=== PATIENT | female | born 1940 | race Caucasian/White ===

== ENCOUNTER 2017-08-13 00:03 | Emergency (ER) | payer MEDICARE, OTHER ==
[2017-08-13 00:18] VITALS: BP 168/72
--- NOTE | 2017-08-13 00:36 | EDM.PDOC ---
ED HPI GENERAL MEDICAL PROBLEM - General Chief Complaint: Lower Extremity Injury/Pain Stated Complaint: LEFT LEG PAIN Time Seen by Provider: 08/13/17 00:19 Source of Information: Reports: Patient, Family () History Limitations: Reports: No Limitations - History of Present Illness INITIAL COMMENTS - FREE TEXT/NARRATIVE: The patient states that she has had pain in her left knee from osteoarthritis for about 10 years. She states that she was working in the shed today, then, around 19:30 tonight, she developed significant pain to the back of her left knee that radiates up to her buttock and down to about the midcalf. She has not identified any modifiers to the pain. She has not noticed any swelling to the left lower extremity. She applied ice to the leg, without relief. No prior similar symptoms. The patient takes a baby aspirin daily. The patient's PCP is Dr. Keysha Mejia. Left Knee Pain Score (Numeric/FACES): 10 - Related Data Allergies Allergy/AdvReac Type Severity Reaction Status Date / Time No Known Allergies Allergy Verified 08/13/17 00:18 Home Meds: Home Meds Aspirin 81 mg PO DAILY 09/12/14 [History] Losartan/Hydrochlorothiazide [Losartan-HCTZ 50-12.5 MG] 1 tab PO BEDTIME [History] Metoprolol Succinate [Toprol XL] 25 mg PO BEDTIME 09/12/14 [History] [place]-3 Fatty Acids [Fish Oil] 1,000 mg PO DAILY 09/12/14 [History] Simvastatin [Zocor] 5 mg PO BEDTIME 09/12/14 [History] Acetaminophen/HYDROcodone [[place] 325-5 MG] 1 tab PO Q6H PRN #10 tablet 08/13/17 [Rx] Lutein/Minerals/Vit A,C & E [Ocuvite] 1 tab PO DAILY 08/13/17 [History] Past Medical History Cardiovascular History: Reports: High Cholesterol, Hypertension Musculoskeletal History: Reports: Osteoarthritis Endocrine/Metabolic History: Reports: Other (See Below) (Prediabetes) - Past Surgical History GI Surgical History: Reports: Appendectomy, Other (See Below) (Hemorrhoidectomy) Female Surgical History: Reports: Hysterectomy, Salpingo-Oophorectomy Social & Family History - Tobacco Use Smoking Status *Q: Former Smoker Second Hand Smoke Exposure: No - Recreational Drug Use Recreational Drug Use: No - Living Situation & Occupation Living situation: Reports: Occupation: Retired Review of Systems - Review of Systems Review Of Systems: ROS reveals no pertinent complaints other than HPI. ED EXAM, GENERAL - Physical Exam Exam: See Below Exam Limited By: No Limitations General Appearance: Alert, WD/WN, No Apparent Distress Extremities: Other (No visible abnormality to the left lower extremity, when compared to the right, such as swelling, erythema, or ecchymosis. This includes the posterior aspect of the left knee. No tenderness to palpation along the posterior aspect of the left lower extremity. Neurovascular status of the left lower extremity is intact. Right mid-calf circumference 34.5 cm. Left mid-calf circumference 33.5 cm.) Course - Vital Signs Last Recorded V/S: Last Vital Signs Temp 36.7 C 08/13/17 00:16 Pulse 79 08/13/17 00:16 Resp 18 08/13/17 00:16 BP 168/72 H 08/13/17 00:16 Pulse Ox 98 08/13/17 00:16 - Orders/Labs/Meds Orders: Active Orders 24 hr Category Date Time Status VL Duplex Lwr Ext Veins Ltd Lt [US] Stat Exams 08/13/17 00:31 Taken Labs: Laboratory Tests 08/13/17 08/13/17 08/13/17 Range/Units 00:40 00:40 00:40 WBC 9.32 (3.98-10.04) K/mm3 RBC 4.37 (3.98-5.22) M/mm3 Hgb 13.4 (11.2-15.7) gm/L Hct 38.4 (34.1-44.9) % MCV 87.9 (79.4-94.8) fl MCH 30.7 (25.6-32.2) pg MCHC 34.9 (32.2-35.5) g/dl RDW Std Deviation 40.8 (36.4-46.3) fL Plt Count 267 (182-369) K/mm3 MPV 9.4 (9.4-12.3) fl Neutrophils % (Manual) 49 (40-60) % Band Neutrophils % 1 (0-10) % Lymphocytes % (Manual) 43 H (20-40) % Atypical Lymphs % 0 % Monocytes % (Manual) 6 (2-10) % Eosinophils % (Manual) 1 (0.7-5.8) % Basophils % (Manual) 0 L (0.1-1.2) Platelet Estimate Adequate RBC Morph Comment Normal PT 11.4 (9.5-12.1) SECONDS INR 1.05 APTT 30 (24-31) SECONDS Sodium 140 (136-145) mEq/L Potassium 3.4 L (3.5-5.1) mEq/L Chloride 103 (98-107) mEq/L Carbon Dioxide 26 (21-32) mEq/L Anion Gap 14.4 (5-15) BUN 13 (7-18) mg/dL Creatinine 0.9 (0.55-1.02) mg/dL Est Cr Clr Drug Dosing 46.36 mL/min Estimated GFR (MDRD) > 60 (>60) mL/min BUN/Creatinine Ratio 14.4 (14-18) Glucose 140 H (83-115) mg/dL Calcium 9.8 (8.5-10.1) mg/dL Total Bilirubin 0.3 (0.2-1.0) mg/dL AST 15 (15-37) U/L ALT 32 (14-59) U/L Alkaline Phosphatase 120 H (46-116) U/L Total Protein 6.6 (6.4-8.2) g/dl Albumin 3.5 (3.4-5.0) g/dl Globulin 3.1 gm/dL Albumin/Globulin Ratio 1.1 (1-2) Meds: Medications Discontinued Medications Generic Name Dose Route Start Last Admin Trade Name Freq PRN Reason Stop Dose Admin Hydrocodone Bitart/Acetaminophen 1 tab 08/13/17 00:42 08/13/17 00:47 [place] 325-5 Mg PO 08/13/17 00:43 1 tab ONETIME STA Administration - Re-Assessments/Exams Free Text/Narrative Re-Assessment/Exam: 08/13/17 00:35 It is unclear what the cause of the patient's left lower extremity pain is. It may well be a muscle strain, but could also be a Israel's cyst or, potentially, a DVT. I have ordered a Doppler of the left lower extremity to evaluate for the latter two, and in the meantime will check some blood work. 08/13/17 01:53 Doppler ultrasound of left lower extremity is read by [facility] as: 1. No evidence of deep venous thrombosis in the left lower extremity. 2. A 2.6 solid soft lesion corresponding to the site of discomfort in the left popliteal fossa. This may be related to prior injury, lymphadenopathy or a neoplastic lesion. Close follow-up or further evaluation with MRI on non- emergent basis is recommended. [sic] 08/13/17 01:59 Test results discussed with the patient. Unfortunately, while the Doppler indicates that there is a solid tissue mass in her left popliteal fossa, the nature of that mass is not known, or why it would cause sudden onset pain radiating up and down her left lower extremity. For tonight's purposes, I will prescribe a small quantity of [place], and refer her to Dr. Kat for further evaluation. Departure - Departure Time of Disposition: 02:00 Disposition: Home, Self-Care 01 Condition: Good Clinical Impression: Popliteal pain - Discharge Information Prescriptions: Acetaminophen/HYDROcodone [[place] 325-5 MG] 1 tab PO Q6H PRN #10 tablet PRN Reason: Pain (Severe 7-10) Referrals: Keysha Mejia MD [Primary Care Provider] - Yifan Kat MD [Physician] - Forms: ED Department Discharge Additional Instructions: You were seen in the emergency room for pain to the back of your left knee, radiating up and down your lower extremity. Workup in the ER included blood work and a Doppler ultrasound of your left lower extremity. Your blood work was unremarkable. The Doppler ultrasound found no blood clot, but did find a tissue mass in the area of your pain. It is not clear what that tissue mass is made of. Take one tablet of [place] up to every 6 hours, as needed for severe pain. If you take [place], do not drive or 10 hours afterwards. [place] may cause constipation, so consider taking a stool softener. Follow-up with the Orthopedic Surgeon Dr. Kat at the next available appointment , for further evaluation. If any other problems, please do not hesitate to return to the ER. - My Orders Last 24 Hours: My Active Orders 08/13/17 00:31 VL Duplex Lwr Ext Veins Ltd Lt [US] Stat - Assessment/Plan Last 24 Hours: My Active Orders 08/13/17 00:31 VL Duplex Lwr Ext Veins Ltd Lt [US] Stat
[2017-08-13] MEDS ORDERED: Acetaminophen/HYDROcodone 325-5 MG Tab PO STA (00:42)
--- NOTE | 2017-08-13 08:17 | US ---
Left lower extremity deep venous ultrasound: Multiple real-time images were obtained of the left common femoral, proximal greater saphenous, superficial femoral, popliteal, posterior tibial and peroneal veins. Right common femoral vein was also evaluated. Findings: Normal phasic flow, augmentation and compression are seen. Isoechoic mass-like lesion is seen within the posterior left popliteal fossa in area of pain. This measures about 2.6 x 2.2 cm. Impression: 1. Soft tissue abnormality within the posterior left popliteal fossa. Differential includes hematoma if there has been prior injury. Soft tissue mass is also within the differential. MRI recommended to further evaluate. 2. No evidence of deep venous thrombosis is seen within the left lower extremity or within the right common femoral vein. Diagnostic code #9 I agree with preliminary report from [facility], finalized at 08/13/17, 2:50 AM Central Time
== END 2017-08-13 02:21 | disposition home or self-care (01) ==
LOC: JD.ED 00:03
DX: M25.562 Pain in left knee (principal); E78.00 Pure hypercholesterolemia, unspecified; I10 Essential (primary) hypertension; Z87.891 Personal history of nicotine dependence; Z79.82 Long term (current) use of aspirin; Z79.899 Other long term (current) drug therapy
CPT/HCPCS: 36415; 80053; 85025; 85610; 85730; 93971; 99284; A9270; 99283

== ENCOUNTER 2017-08-27 19:06 | Emergency (ER) | payer MEDICARE ==
[2017-08-27 19:33] VITALS: BP 136/48
--- NOTE | 2017-08-27 20:43 | EDM.PDOC ---
ED HPI GENERAL MEDICAL PROBLEM - General Chief Complaint: Bite:Animal, Insect Stated Complaint: TICK ON HEAD Time Seen by Provider: 08/27/17 20:20 Source of Information: Reports: Patient History Limitations: Reports: No Limitations - History of Present Illness INITIAL COMMENTS - FREE TEXT/NARRATIVE: 77 year old female presents for evaluation and treatment of a tick bite. Reportedly was at [facility] the past few days. Appreciated a tick earlier today. Estimated to be on the skin < 24 hours. No fevers, chills, nausea or vomiting. No skin changes such as rash or erythema appreciated. - Related Data Allergies Allergy/AdvReac Type Severity Reaction Status Date / Time No Known Allergies Allergy Verified 08/27/17 19:30 Home Meds: Home Meds Aspirin 81 mg PO DAILY 09/12/14 [History] Losartan/Hydrochlorothiazide [Losartan-HCTZ 50-12.5 MG] 1 tab PO BEDTIME [History] Metoprolol Succinate [Toprol XL] 25 mg PO BEDTIME 09/12/14 [History] [place]-3 Fatty Acids [Fish Oil] 1,000 mg PO DAILY 09/12/14 [History] Simvastatin [Zocor] 5 mg PO BEDTIME 09/12/14 [History] Lutein/Minerals/Vit A,C & E [Ocuvite] 1 tab PO DAILY 08/13/17 [History] Past Medical History Other HEENT History: Right eye. Surgery on 12/16/14 for removal Cardiovascular History: Reports: High Cholesterol, Hypertension Other Gastrointestinal History: Has constipation that turns into diarrhea most of the time Musculoskeletal History: Reports: Osteoarthritis Endocrine/Metabolic History: Reports: Other (See Below) Other Endocrine/Metabolic History: prediabetes, HLD - Past Surgical History GI Surgical History: Reports: Appendectomy, Other (See Below) Female Surgical History: Reports: Hysterectomy, Salpingo-Oophorectomy Social & Family History - Tobacco Use Smoking Status *Q: Never Smoker - Caffeine Use Caffeine Use: Reports: Coffee - Living Situation & Occupation Living situation: Reports: Occupation: Retired ED ROS GENERAL - Review of Systems Review Of Systems: ROS reveals no pertinent complaints other than HPI. ED EXAM, ANIMAL BITE - Physical Exam Exam: See Below Exam Limited By: No Limitations General Appearance: Alert, WD/WN, No Apparent Distress Respiratory/Chest: No Respiratory Distress Neurological: Alert, Oriented, Normal Cognition Psychiatric: Normal Affect, Normal Mood Skin Exam: Normal Color, Warm/Dry, Other (deer tick to the left occipital scalp ; no surrounding erythema, tick is not engorged. Tick had greasped the skin but was not embeded in the skin. ) Course - Vital Signs Last Recorded V/S: Last Vital Signs Temp 36.3 C 08/27/17 19:31 Pulse 76 08/27/17 19:31 Resp 17 08/27/17 19:31 BP 136/48 L 08/27/17 19:31 Pulse Ox 97 08/27/17 19:31 - Re-Assessments/Exams Free Text/Narrative Re-Assessment/Exam: 08/27/17 20:32 [place] tick removed from the left occipital scalp. No surrounding erythema. No bulls eye rash appreciated. Tick not engorged. Removed easily with pick-ups. Instructed to monitor the area. Follow-up as needed. Discharge instructions as documented. Departure - Departure Time of Disposition: 20:41 Disposition: Home, Self-Care 01 Condition: Fair Clinical Impression: Tick bite of head - Discharge Information Instructions: Tick Bite Information, Adult, [id number] Referrals: Keysha Mejia MD [Primary Care Provider] - Forms: ED Department Discharge Additional Instructions: Monitor the area over the next week. Check the area daily or every other day. Monitor for signs of infection like swelling, pus or redness. Monitor for a bull 's-eye-like rash. Present to the clinic or the ER if these develop. If you develop fevers, chills, nausea or vomiting over the next week make sure you are seen and mention that you had a tick bite recently. Please return to the ER for symptoms change or worse. You may wash your hair as normal.
== END 2017-08-27 20:47 | disposition home or self-care (01) ==
LOC: JD.ED 19:06
DX: S00.06XA Insect bite (nonvenomous) of scalp, initial encounter (principal); I10 Essential (primary) hypertension; Z79.82 Long term (current) use of aspirin; Z79.899 Other long term (current) drug therapy; W57.XXXA Bitten or stung by nonvenomous insect and other nonvenomous arthropods, initial encounter
CPT/HCPCS: 10120; 99282-25

== ENCOUNTER 2019-07-19 22:55 | Emergency (ER) | payer MEDICARE, OTHER ==
[2019-07-19 23:08] VITALS: PULSE 75
[2019-07-19] MEDS ORDERED: cloNIDine 0.1 MG Tab PO ONE (23:28)
--- NOTE | 2019-07-19 23:33 | EDM.PDOC ---
ED HPI GENERAL MEDICAL PROBLEM - General Chief Complaint: Cardiovascular Problem Stated Complaint: HIGH BLOOD PRESSURE Time Seen by Provider: 07/19/19 23:21 Source of Information: Reports: Patient History Limitations: Reports: No Limitations - History of Present Illness INITIAL COMMENTS - FREE TEXT/NARRATIVE: This is a 78-year-old female. She has hypertension for which she takes 50 mg losartan 12.5 mg hydrochlorothiazide and 50 mg of metoprolol in the morning. She recently had her metoprolol increased from 25 mg to 50 mg about 5 weeks ago. For some reason she has been feeling restless at nighttime and she was wondering whether or not it might be her blood pressure that is elevating at nighttime. She checked her blood pressure this morning because she was nervous about it is elevated with systolic above 200. Continue to monitor her blood pressure and finally comes in this evening because it continues to be elevated. She does admit that she is somewhat anxious about her blood pressure and she panics when she sees as high that she says normally her blood pressure runs 120/ 60. She does have an appointment on Sunday to see her family doctor. She has elevated blood pressure other than being anxious she has no chest pain she has no shortness of breath and occasionally she will have a mild headache. She denies any recent illnesses such as colds cough fever or shortness of breath. Occipital Pain Score (Numeric/FACES): 3 - Related Data Allergies Allergy/AdvReac Type Severity Reaction Status Date / Time No Known Allergies Allergy Verified 07/19/19 23:08 Home Meds: Home Meds Aspirin 81 mg PO DAILY 09/12/14 [History] Losartan/Hydrochlorothiazide [Losartan-HCTZ 50-12.5 MG] 1 tab PO DAILY 09/12/14 [History] Metoprolol Succinate [Toprol XL] 50 mg PO BEDTIME 09/12/14 [History] [place]-3 Fatty Acids [Fish Oil] 1,000 mg PO DAILY 09/12/14 [History] Simvastatin [Zocor] 5 mg PO BEDTIME 09/12/14 [History] Lutein/Minerals/Vit A,C & E [Ocuvite] 1 tab PO DAILY 08/13/17 [History] Past Medical History Other HEENT History: Right eye. Surgery on 12/16/14 for removal Cardiovascular History: Reports: High Cholesterol, Hypertension Other Gastrointestinal History: Has constipation that turns into diarrhea most of the time Musculoskeletal History: Reports: Osteoarthritis Endocrine/Metabolic History: Reports: Other (See Below) Other Endocrine/Metabolic History: prediabetes, HLD - Past Surgical History GI Surgical History: Reports: Appendectomy, Other (See Below) Female Surgical History: Reports: Hysterectomy, Salpingo-Oophorectomy Social & Family History - Tobacco Use Smoking Status *Q: Former Smoker Used Tobacco, but Quit: Yes Month/Year Tobacco Last Used: 20 years ago - Caffeine Use Caffeine Use: Reports: Coffee - Recreational Drug Use Recreational Drug Use: No - Living Situation & Occupation Living situation: Reports: Occupation: Retired ED ROS GENERAL - Review of Systems Review Of Systems: See Below Constitutional: Denies: Fever, Chills HEENT: Reports: No Symptoms Respiratory: Denies: Shortness of Breath, Cough Cardiovascular: Denies: Chest Pain Endocrine: Reports: No Symptoms GI/Abdominal: Denies: Abdominal Pain, Diarrhea, Nausea, Vomiting : Reports: No Symptoms Musculoskeletal: Reports: No Symptoms Skin: Reports: No Symptoms Neurological: Reports: Headache Psychiatric: Reports: No Symptoms Hematologic/Lymphatic: Reports: No Symptoms ED EXAM, GENERAL - Physical Exam Exam: See Below Exam Limited By: No Limitations General Appearance: Alert, WD/WN, Anxious Eye Exam: Bilateral Eye: Normal Inspection Ears: Normal External Exam Throat/Mouth: Normal Voice, No Airway Compromise Head: Normocephalic Neck: Supple Respiratory/Chest: No Respiratory Distress, Lungs Clear, Normal Breath Sounds Cardiovascular: Regular Rate, Rhythm, No Murmur Back Exam: Full Range of Motion Extremities: Normal Inspection, Normal Range of Motion Neurological: Alert, Oriented Psychiatric: Anxious Skin Exam: Warm, Dry EKG INTERPRETATION EKG Date: 07/19/19 Time: 23:56 EKG Interpretation Comments: EKG shows a normal sinus rhythm rate of 64. No acute ST or T wave changes noted. No ischemia noted. Course - Vital Signs Last Recorded V/S: Last Vital Signs Temp 97.1 F 07/19/19 23:04 Pulse 75 07/19/19 23:04 Resp 16 07/19/19 23:04 BP 167/77 H 07/19/19 23:33 Pulse Ox 98 07/19/19 23:04 - Orders/Labs/Meds Orders: Active Orders 24 hr Category Date Time Status EKG 12 Lead [EKG Documentation Completion] [RC] STAT Care 04/11/20 23:29 Active Labs: Laboratory Tests 07/19/19 07/19/19 Range/Units 23:35 23:35 WBC 6.75 (3.98-10.04) K/mm3 RBC 4.90 (3.98-5.22) M/mm3 Hgb 14.1 (11.2-15.7) gm/dl Hct 41.7 (34.1-44.9) % MCV 85.1 (79.4-94.8) fl MCH 28.8 (25.6-32.2) pg MCHC 33.8 (32.2-35.5) g/dl RDW Std Deviation 43.0 (36.4-46.3) fL Plt Count 285 (182-369) K/mm3 MPV 9.7 (9.4-12.3) fl Neut % (Auto) 33.9 L (34.0-71.1) % Lymph % (Auto) 52.1 H (19.3-51.7) % [place] % (Auto) 11.3 (4.7-12.5) % Eos % (Auto) 2.2 (0.7-5.8) Baso % (Auto) 0.4 (0.1-1.2) % Neut # (Auto) 2.28 (1.56-6.13) K/mm3 Lymph # (Auto) 3.52 (1.18-3.74) K/mm3 [place] # (Auto) 0.76 H (0.24-0.36) K/mm3 Eos # (Auto) 0.15 (0.04-0.36) K/mm3 Baso # (Auto) 0.03 (0.01-0.08) K/mm3 Sodium 136 (136-145) mEq/L Potassium 4.2 (3.5-5.1) mEq/L Chloride 102 (98-107) mEq/L Carbon Dioxide 27 (21-32) mEq/L Anion Gap 11.2 (5-15) BUN 14 (7-18) mg/dL Creatinine 1.0 (0.55-1.02) mg/dL Est Cr Clr Drug Dosing 41.05 mL/min Estimated GFR (MDRD) 53 (>60) mL/min BUN/Creatinine Ratio 14.0 (14-18) Glucose 125 H (83-115) mg/dL Calcium 10.4 H (8.5-10.1) mg/dL Total Bilirubin 0.2 (0.2-1.0) mg/dL AST 26 (15-37) U/L ALT 38 (14-59) U/L Alkaline Phosphatase 120 H (46-116) U/L Troponin I < 0.017 (0.00-0.056) ng/mL Total Protein 7.4 (6.4-8.2) g/dl Albumin 3.9 (3.4-5.0) g/dl Globulin 3.5 gm/dL Albumin/Globulin Ratio 1.1 (1-2) Meds: Medications Discontinued Medications Generic Name Dose Route Start Last Admin Trade Name Brenda PRN Reason Stop Dose Admin Clonidine HCl 0.2 mg 07/19/19 23:28 07/19/19 23:33 Catapres PO 07/19/19 23:29 0.2 mg ONETIME ONE Administration - Re-Assessments/Exams Free Text/Narrative Re-Assessment/Exam: 07/20/19 01:06 Patient is feeling good. She wants to go home. She says her headache has resolved. I talked to her at length regarding taking her blood pressure and making sure she takes her medications in the morning and increase the losartan to 1 tablet at nighttime as well. We talked about how anxiety causes the blood pressure to rise and she needs to lie down and take her blood pressures to stay as relaxed as possible. She does have a follow-up appointment with her doctor on Sunday and I have encouraged her to keep that. Departure - Departure Time of Disposition: : Disposition: Home, Self-Care 01 Condition: Good Clinical Impression: Elevated blood pressure reading Referrals: Keysha Mejia MD [Primary Care Provider] - Forms: ED Department Discharge Additional Instructions: Take 1 losartan and metoprolol medication in the morning and then take 1 losartan in the evening, you can space them out 10-12 hours apart must follow- up with your doctor on Sunday as scheduled for recheck of your blood pressure and possibly change in medications, return to the ER if needed Sepsis Event Note - Evaluation Sepsis Screening Result: No Definite Risk - Focused Exam Vital Signs: Vital Signs Temp Pulse Resp BP BP Pulse Ox 07/19/19 23:33 167/77 H 07/19/19 23:04 97.1 F 75 16 201/80 H 98 Date Exam was Performed: 07/20/19 Time Exam was Performed: 01:06 - My Orders Last 24 Hours: My Active Orders 07/19/19 23:29 EKG 12 Lead [EKG Documentation Completion] [RC] STAT - Assessment/Plan Last 24 Hours: My Active Orders 07/19/19 23:29 EKG 12 Lead [EKG Documentation Completion] [RC] STAT
[2019-07-19 23:34] VITALS: BP 167/77
== END 2019-07-20 01:18 | disposition home or self-care (01) ==
LOC: JD.ED 22:55
DX: I10 Essential (primary) hypertension (principal); M19.90 Unspecified osteoarthritis, unspecified site; Z79.82 Long term (current) use of aspirin; E78.5 Hyperlipidemia, unspecified; Z87.891 Personal history of nicotine dependence; Z79.899 Other long term (current) drug therapy
CPT/HCPCS: 36415; 80053; 84484; 85025; 93005; 99283; A9270; 93010

== ENCOUNTER 2021-01-24 07:33 | Day surgery (SDC) | payer MEDICARE, OTHER ==
[~2021-01-24 07:33] MED LIST: Acetaminophen 325 MG Tab PO SCH; Lactated Ringers 1,000 ML IV SCH; Lidocaine 1%/Sod Bicarbonate in NS 8.4% 1 ML Syringe IDERM PRN; Pregabalin 25 MG Cap PO SCH; Sodium Chloride 0.9% 10 ML Syringe FLUSH PRN
[2021-01-24] MEDS ORDERED: Propofol 200 MG/20 ML SDV ONE ×2 (07:55→10:03)
[2021-01-24] MEDS ORDERED: ceFAZolin 1 GM Vial ONE (07:56)
[2021-01-24] MEDS ORDERED: Lidocaine 1% 4 ML ONE (07:56)
[2021-01-24] MEDS ORDERED: Ropivacaine 0.5% 5 MG/ML 30 ML SDV ONE (08:00)
[2021-01-24] MEDS ORDERED: EPINEPHrine 1 MG/ML SDV ONE (08:01)
--- NOTE | 2021-01-24 08:16 | PCM.PREANE ---
Preanesthetic Assessment - Anesthesia/Transfusion/Family Hx Anesthesia History: Prior Anesthesia Without Reaction Family History of Anesthesia Reaction: No Transfusion History: No Prior Transfusion(s) Intubation History: Unknown - Review of Systems General: No Symptoms Pulmonary: No Symptoms Cardiovascular: No Symptoms Gastrointestinal: No Symptoms Neurological: No Symptoms Other: Reports: Diabetes (BS 141 @ 0805), Anxiety - Physical Assessment NPO Status Date: 01/23/21 NPO Status Time: 22:00 ASA Class: 2 Mental Status: Alert & Oriented x3 Airway Class: Mallampati = 2 Dentition: Reports: Normal Dentition Thyro-Mental Finger Breadths: 3 Mouth Opening Finger Breadths: 3 ROM/Head Extension: Full Lungs: Clear to Auscultation, Normal Respiratory Effort Cardiovascular: Regular Rate, Regular Rhythm - Allergies Allergies/Adverse Reactions: Allergies Allergy/AdvReac Type Severity Reaction Status Date / Time No Known Allergies Allergy Verified 01/21/21 12:36 - Anesthesia Plan Beta Carey: Metoprolol Med Last Dose Date: 01/24/21 - Acknowledgements Anesthesia Type Planned: Spinal, Regional Block Pt an Appropriate Candidate for the Planned Anesthesia: Yes Alternatives and Risks of Anesthesia Discussed w Pt/Guardian: Yes Pt/Guardian Understands and Agrees with Anesthesia Plan: Yes PreAnesthesia Questionnaire HEENT History: Reports: Hard of Hearing, Impaired Vision Other HEENT History: Right eye. Surgery on 12/16/14 for removal Cardiovascular History: Reports: CAD, High Cholesterol, Hypertension Respiratory History: Reports: Other (See Below) Other Respiratory History: pulmonary nodule left lower lung Gastrointestinal History: Reports: Chronic Constipation, Hemorrhoids Other Gastrointestinal History: Has constipation that turns into diarrhea most of the time Genitourinary History: Reports: Other (See Below) Other Genitourinary History: rectocele TONSORIAL ARTIST History: Reports: None Musculoskeletal History: Reports: Arthritis Neurological History: Reports: None Psychiatric History: Reports: Anxiety, Depression Endocrine/Metabolic History: Reports: Other (See Below) Other Endocrine/Metabolic History: pre diabetes Hematologic History: Reports: None Immunologic History: Reports: None Oncologic (Cancer) History: Reports: None Dermatologic History: Reports: None - Infectious Disease History Infectious Disease History: Reports: None - Past Surgical History Head Surgeries/Procedures: Reports: None HEENT Surgical History: Reports: Cataract Surgery Cardiovascular Surgical History: Reports: None Respiratory Surgical History: Reports: None GI Surgical History: Reports: Colonoscopy, EGD Female Surgical History: Reports: Hysterectomy Male Surgical History: Reports: None Endocrine Surgical History: Reports: None Neurological Surgical History: Reports: None Musculoskeletal Surgical History: Reports: Carpal Tunnel Oncologic Surgical History: 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 Dermatological Surgical History: Reports: None - SUBSTANCE USE Tobacco Use Status *Q: Former Tobacco User Recreational Drug Use History: No - HOME MEDS Home Medications: Home Meds Losartan/Hydrochlorothiazide [Losartan-HCTZ 50-12.5 MG] 1 tab PO DAILY 09/12/14 [History] Metoprolol Succinate [Toprol XL] 50 mg PO BEDTIME 09/12/14 [History] [place]-3 Fatty Acids [Fish Oil] 1,000 mg PO DAILY 09/12/14 [History] Simvastatin [Zocor] 5 mg PO BEDTIME 09/12/14 [History] Cholecalciferol (Vitamin D3) [Vitamin D3] 5,000 unit PO DAILY 01/21/21 [History] Fluticasone Propionate [Flonase] 1 dose NASBOTH DAILY 01/21/21 [History] LORazepam [Ativan] 0.5 mg PO BEDTIME PRN 01/21/21 [History] Magnesium Hydroxide [Milk of Magnesia] 1 dose PO ASDIRECTED PRN 01/21/21 [History] Omeprazole Magnesium [Prilosec Otc] 20 mg PO DAILY 01/21/21 [History] traZODone HCl [Trazodone HCl] 25 mg PO BEDTIME 01/21/21 [History] Aspirin [Aspirin EC] 325 mg PO BID #60 tab 01/24/21 [Rx] oxyCODONE 5 - 10 mg PO Q4H PRN #40 tab 01/24/21 [Rx] - CURRENT (IN HOUSE) MEDS Current Meds: Current Medications Acetaminophen (Acetaminophen 325 Mg Tab) 975 mg PO ONETIME NATHAN Stop: 01/24/21 16:00 Morphine Sulfate 8 mg/Epinephrine HCl 0.3 mg/Cefuroxime Sodium 750 mg/Ketorolac Tromethamine 30 mg/Sodium Chloride 7.9 ml 0 mg .XX ASDIRECTED PRN PRN Reason: Pain Stop: 01/24/21 18:00 Lactated Ringer's (Ringers, Lactated) 1,000 mls @ 125 mls/hr IV ASDIRECTED NATHAN Stop: 01/24/21 23:00 Lidocaine/Sodium Bicarbonate (Lidocaine 1%/Sod Bicarbonate In Ns 8.4% 1 Ml Syringe) 0.25 ml IDERM ONETIME PRN PRN Reason: Prior to IV Start Stop: 01/24/21 18:00 Oxycodone HCl (Oxycodone Er 10 Mg Tab.Er) 10 mg PO ONETIME NATHAN Stop: 01/24/21 16:00 Pregabalin (Pregabalin 25 Mg Cap) 50 mg PO ONETIME NATHAN Stop: 01/24/21 18:00 Sodium Chloride (Sodium Chloride 0.9% 10 Ml Syringe) 10 ml FLUSH ASDIRECTED PRN PRN Reason: Keep Vein Open Stop: 01/24/21 18:00 Discontinued Medications Cefazolin Sodium (Cefazolin 1 Gm Vial) Confirm Administered Dose 2 gm .ROUTE .STK-MED ONE Stop: 01/24/21 07:57 Epinephrine HCl (Epinephrine 1 Mg/Ml Sdv) Confirm Administered Dose 1 mg .ROUTE .STK-MED ONE Stop: 01/24/21 08:02 Lidocaine HCl (Xylocaine-Mpf 1%) Confirm Administered Dose 4 mls @ as directed .ROUTE .STK-MED ONE Stop: 01/24/21 07:57 Propofol (Propofol 200 Mg/20 Ml Sdv) Confirm Administered Dose 200 mg .ROUTE .STK-MED ONE Stop: 01/24/21 07:56 Ropivacaine (Ropivacaine 0.5% 5 Mg/Ml 30 Ml Sdv) Confirm Administered Dose 30 ml .ROUTE .STK-MED ONE Stop: 01/24/21 08:01 Tranexamic Acid (Tranexamic Acid 1,000 Mg/10 Ml Amp) Confirm Administered Dose 1,000 mg .ROUTE .STK-MED ONE Stop: 01/24/21 07:36 Vancomycin HCl (Vancomycin 1 Gm Sdv) Confirm Administered Dose 1 gm .ROUTE .STK- MED ONE Stop: 01/24/21 07:36
[2021-01-24] MEDS: oxyCODONE ER 10 MG TAB.ER PO SCH ×2 (08:20→13:30)
[2021-01-24] MEDS ORDERED: Vancomycin 1 GM SDV ONE (08:42)
[2021-01-24] MEDS ORDERED: ePHEDrine 50 MG/ML SDV ONE (09:20)
[2021-01-24] MEDS ORDERED: Lactated Ringers 1,000 ML ONE (09:29)
[2021-01-24] MEDS ORDERED: Ondansetron 4 MG/2 ML SDV IVPUSH PRN (09:49)
[2021-01-24] MEDS ORDERED: fentaNYL 100 MCG/2 ML SDV IVPUSH PRN (09:49)
[2021-01-24] MEDS: Morphine 8 MG, EPINEPHrine 0.3 MG, Cefuroxime 750 MG, Ketorolac 30 MG, Sodium Chloride ... PRN ×10 (10:22→10:24)
[2021-01-24] MEDS: Vancomycin 1 GM SDV ONE ×2 (10:25→10:28)
[2021-01-24] MEDS ORDERED: Ondansetron 4 MG/2 ML SDV ONE (10:35)
[2021-01-24] MEDS ORDERED: Ketorolac 15 MG/ML SDV ONE (10:35)
--- NOTE | 2021-01-24 10:55 | PCM.POSTAN ---
POST ANESTHESIA ASSESSMENT - MENTAL STATUS Mental Status: Alert, Oriented - VITAL SIGNS Vital Signs: Last Vital Signs Temp 36.1 C 01/24/21 07:50 Pulse 56 L 01/24/21 07:50 Resp 16 01/24/21 07:50 BP 139/50 L 01/24/21 07:50 Pulse Ox 98 01/24/21 07:50 - RESPIRATORY Respiratory Status: Respiratory Rate WNL, Airway Patent, O2 Saturation Stable, Supplemental Oxygen - CARDIOVASCULAR CV Status: Pulse Rate WNL, Blood Pressure Stable - GASTROINTESTINAL GI Status: No Symptoms - PAIN Pain Score: 0 - POST OP HYDRATION Hydration Status: Adequate & Stable
--- NOTE | 2021-01-24 11:15 | PCM.PRNOTE ---
- Free Text/Narrative Note: Left selective femoral nerve block at the adductor canal for post-procedure pain control under US guidance requested by Dr. Kat. Time Out: 1058 Start: 1059 End: 1107 Chart reviewed. Consent signed. Questions answered. Appropriate monitors applied. Time out performed. Left mid-shaft femur identified with ultrasound, scanning medially of femur, the femoral artery in the adductor canal visualized, and the femoral nerve located laterally to the artery. The skin was prepped lateral to the ultrasound probe with chlorahexadine times two. The 21ga 4 insulated block needle was inserted under direct ultrasound guidance into the adductor canal. 25mL of 0.5% ropivacaine with 1:200,000 epinephrine was injected circumferentially around the nerve with intermittent negative aspiration noted. Patient tolerated the procedure well. Sterile technique noted along with sterile gloves, mask, and sterile probe cover. See picture on progress note and vital signs on nurses notes. Block completed in PACU. Kita Campbell CRNA
--- NOTE | 2021-01-24 11:36 | CR ---
Left knee: AP and lateral views of the left knee were obtained. Comparison: Prior left knee CT study of 01/07/21. Knee prosthesis and patellar prosthesis are noted. Components are aligned. Soft tissue air is seen. Slight vascular calcification is noted. No underlying bony abnormality is appreciated. Impression: 1. Satisfactory postoperative appearance of recently placed left knee prostheses. Diagnostic code #2
--- NOTE | 2021-01-24 11:45 | PCM48HPAN ---
Post Anesthesia Note - EVALUATION WITHIN 48HRS OF ANESTHETIC Vital Signs in Normal Range: Yes Patient Participated in Evaluation: Yes Respiratory Function Stable: Yes Airway Patent: Yes Cardiovascular Function Stable: Yes Hydration Status Stable: Yes Pain Control Satisfactory: Yes Nausea and Vomiting Control Satisfactory: Yes Mental Status Recovered: Yes Vital Signs: Last Vital Signs Temp 36.4 C 01/24/21 11:34 Pulse 64 01/24/21 11:34 Resp 14 01/24/21 11:34 BP 119/38 L 01/24/21 11:34 Pulse Ox 100 01/24/21 11:34
[2021-01-24] MEDS ORDERED: oxyCODONE 5 MG Tab PO ONE (13:15)
[2021-01-24 16:06] VITALS: PULSE 55
[2021-01-24 17:09] VITALS: BP 116/41
--- NOTE | 2021-02-08 06:38 | PCM.OPNOTE ---
- General Post-Op/Procedure Note Date of Surgery/Procedure: 01/24/21 Operative Procedure(s): left total knee arthroplasty with [employer] robot[employer] Pre Op Diagnosis: left knee osteoarthrosis Post-Op Diagnosis: Same Anesthesia Technique: Local, MAC, Spinal Primary Surgeon: Yifan Kat Anesthesia Provider: Kita Campbell Transport Tech: Marlene Moran Transport Tech: Candie Gómez EBL in mLs: 5 Complications: None Condition: Good Free Text/Narrative:: / 9mm 35x10
--- NOTE | 2021-02-08 07:22 | OR ---
DATE OF OPERATION: 01/24/2021 SURGEON: Yifan Kat MD OPERATION PERFORMED: Left total knee arthroplasty with [employer] robot[employer]. PREOPERATIVE DIAGNOSIS: Left knee osteoarthrosis. POSTOPERATIVE DIAGNOSIS: Left knee osteoarthrosis. ANESTHESIA: Local MAC with spinal. ANESTHESIA PROVIDER: Kita Campbell CRNA ASSISTANTS: Marlene Moran PA-C; and Candie Gómez LPN. ESTIMATED BLOOD LOSS: 5 mL. COMPLICATIONS: None. CONDITION: Stable. IMPLANTS: 1. [employer] size 4 cemented PS femur. 2. Boston size 4 cemented Porter tibial baseplate. 3. Boston size 4 9 mm PS X3 polyethylene. 4. Avinash size 35 x 10 mm cemented asymmetric patella. DESCRIPTION OF PROCEDURE: The patient was identified in the preop holding area. Proper site was marked and identified by the surgeon. The patient was taken back to the operating theater where after adequate anesthesia, the patient's left lower extremity had a nonsterile tourniquet applied and it was sterilely prepped and draped in the usual sterile fashion. OR time-out was performed. The patient received 2 g IV Ancef. Leg green was then applied to the left lower extremity. At this time, the left lower extremity was exsanguinated. Tourniquet was insufflated to 250 mmHg . Standard anterior incision was made. Medial parapatellar arthrotomy was created. Deep fibers of the MCL were raised as well as anterior fat pad was resected. Attention was turned to the patella. Patella measured 24 mm; it was resected to a 14 mm for a 35 x 10 mm patella. Drill holes were then drilled. Attention was then turned to the femur. Two 4.0 pins were placed intra- incisionally for the [employer] robotic array and then 2 more were placed on the tibia 3 fingerbreadths below the tibial tubercle. The [employer] robotic arrays were placed on both the femur and the tibia then at this time as well as checkpoints on the femur and tibia. Hip center rotation was then obtained. The medial and lateral malleoli were marked. At this time, 40 points were obtained off the femur and the tibia for the [employer] robotic plan. The patient's knee was brought to full extension. Varus and valgus stresses were applied and then into 90 degrees of flexion with a curved osteotome. Varus and valgus stresses were applied. At this time, [employer] robotic plan was done to 19 mm gaps in both flexion and extension. [employer] robotic arm was then brought in. A straight saw blade was then used for the tibial cut, the anterior femoral cut, the anterior chamfer cut, and the posterior femoral cut. All bony fragments were removed. Saw blade was then switched out and the distal femoral cut as well as the posterior chamfer cut was completed. At this time, medial and lateral menisci were resected as well as any posterior osteophytes. A size 4 mm trial tibia was then placed, size 4 mm trial femur was placed, and a size 4 9 mm PS X3 polyethylene trial liner was placed. The patient's knee was brought to full extension and flexion. Varus and valgus stresses were applied, was found to be stable with no instability. No signs of liftoff or loosening were noted. At this time, box cut was completed on the femur. The pins were removed from the femur and the tibia as well as the arrays and the checkpoints. Cement was mixed on the back table. All cut surfaces were irrigated with pulse lavage irrigation with Ancef and then completely dried. Once the cement was ready, the Boston size 4 mm cemented Porter tibial base plate having been previously stamped and drilled, was then cemented in place on the tibia. The Avinash size 4 mm cemented femur was cemented into place. The patient had a Avinash size 4 9 mm PS X3 polyethylene insert placed. The patient's knee was brought to full extension. Excess cement was removed. A Avinash size 35 x 10 mm cemented asymmetric patella was then cemented into place. 1 L of pulse lavage irrigation with Ancef was irrigated through the knee along with 400 mL of IrriSept irrigation. Periarticular injection was completed. Topical tranexamic acid and vancomycin powder were applied. A #2 barbed suture was used for closure of the medial parapatellar arthrotomy in flexion. 2-0 Vicryl and Stratafix were used for subcutaneous closure. Prineo was used for cutaneous closure. The patient had a sterile soft dressing applied. The tibial holes were closed with nylon, and this was also covered with a sterile soft dressing. The patient had an ISABELA wrap applied and was sent to PACU in stable condition. The patient tolerated the procedure well. MMODAL /[id number]
== END 2021-01-24 17:00 | disposition home or self-care (01) ==
LOC: JD.SDS 07:33
PROVIDERS: ATTEND Orthopaedic Surgery
DX: M17.0 Bilateral primary osteoarthritis of knee (principal); I10 Essential (primary) hypertension; E78.00 Pure hypercholesterolemia, unspecified; R73.03 Prediabetes; I25.10 Atherosclerotic heart disease of native coronary artery without angina pectoris; F41.8 Other specified anxiety disorders; Z79.899 Other long term (current) drug therapy; Z90.49 Acquired absence of other specified parts of digestive tract; Z87.891 Personal history of nicotine dependence; Z98.890 Other specified postprocedural states
CPT/HCPCS: 27447; 73560; 82947; 97110; 97116; 97161; A9270; C1713; C1776; J0171; J0690; J0697; J1885; J2270; J2405; J2704; J2795; J3370; J7120; 01402; 99100

== ENCOUNTER 2021-06-11 16:19 | Emergency (ER) | payer MEDICARE, OTHER ==
[2021-06-11] MEDS ORDERED: LORazepam 0.5 MG Tab PO ONE (17:16)
[2021-06-11 18:51] VITALS: BP 122/84; PULSE 67
== END 2021-06-11 18:52 | disposition home or self-care (01) ==
LOC: JD.ED 16:19
DX: F41.9 Anxiety disorder, unspecified (principal); I10 Essential (primary) hypertension; E78.00 Pure hypercholesterolemia, unspecified; M19.90 Unspecified osteoarthritis, unspecified site; Z79.899 Other long term (current) drug therapy; Z79.82 Long term (current) use of aspirin; Z87.891 Personal history of nicotine dependence
CPT/HCPCS: 36415; 71045; 80053; 83735; 84484; 85025; 93005; 99284; A9270

== ENCOUNTER 2021-12-01 12:47 | Emergency (ER) | payer MEDICARE, OTHER ==
[2021-12-01 13:16] VITALS: BP 148/55; PULSE 77
[2021-12-01] MEDS ORDERED: Sodium Chloride 0.9% 10 ML Syringe FLUSH PRN ×2 (13:30→13:39)
[2021-12-01] MEDS ORDERED: Ondansetron 4 MG/2 ML SDV IVPUSH ONE (13:30)
[2021-12-01] MEDS ORDERED: Sodium Chloride 0.9% 1,000 ML IV SCH (13:30)
[2021-12-01] MEDS ORDERED: Iopamidol 612 MG/ML 100 ML Bottle IVPUSH ONE (13:39)
[2021-12-01] MEDS ORDERED: Piperacillin/Tazobactam 4.5 GM in Sodium Chloride 0.9% 100 ML IV ONE (16:44)
== END 2021-12-01 19:30 | disposition home or self-care (01) ==
LOC: JD.ED 12:47
DX: K59.09 Other constipation (principal); R33.9 Retention of urine, unspecified; I10 Essential (primary) hypertension; Z79.899 Other long term (current) drug therapy; Z79.82 Long term (current) use of aspirin; Z90.49 Acquired absence of other specified parts of digestive tract; Z90.710 Acquired absence of both cervix and uterus
CPT/HCPCS: 36415; 74177; 80053; 81001; 83690; 85025; 86140; 87493; 96361; 96365; 96375; 99284; J2405; J2543; J3490; J7030; Q9967

== ENCOUNTER 2023-03-07 15:08 | Emergency (ER) | payer MEDICARE, OTHER ==
[2023-03-07 15:28] VITALS: BP 168/67
[2023-03-07 16:22] LABS: INFLUENZA A NAA NEGATIVE (NEGATIVE); RESPIRATORY SYNCYTIAL VIR NAA NEGATIVE (NEGATIVE)
[2023-03-07] MEDS ORDERED: Acetaminophen 325 MG Tab PO ONE (16:30)
[2023-03-07 16:58] LABS: CORONAVIRUS COVID-19 NAA POSITIVE (NEGATIVE)
[2023-03-07 18:21] VITALS: PULSE 76
== END 2023-03-07 18:15 | disposition home or self-care (01) ==
LOC: JD.ED 15:08
DX: U07.1 COVID-19 (principal); I10 Essential (primary) hypertension; E78.00 Pure hypercholesterolemia, unspecified; M19.90 Unspecified osteoarthritis, unspecified site; Z79.82 Long term (current) use of aspirin; Z79.899 Other long term (current) drug therapy
CPT/HCPCS: 0241U; 71045; 99284; A9270; 99283